=== PATIENT | female | born 1990 | race American Indian/Alaskan Native ===

== ENCOUNTER 2019-03-17 00:10 | Emergency (ER) | payer SELFPAY ==
[2019-03-17 00:23] VITALS: BP 124/79
[2019-03-17 01:32] LABS: Bacteria,Urine 1+ /HPF (Negative); Bilirubin,Urine NEG (Negative); Blood,Urine MOD (Negative); Color,Urine Yellow (Yellow); Mucus,Urine 3+ /HPF; Protein,Urine <15 mg/dL mg/dL (Negative)
--- NOTE | 2019-03-17 01:54 | Emergency Department Report ---
ED Female HPI - General Chief complaint: Urogenital-Female Stated complaint: ABD PAIN Time Seen by Provider: 03/17/19 01:51 Source: patient, RN notes reviewed Mode of arrival: Ambulatory Limitations: No Limitations - History of Present Illness Initial comments: During the entire history and physical examination, I am chaperoned by front end loader driver Yevgeniy Meza Patient is a 28-year-old female who does not believe that she is , with a distant history of gonorrhea. She does not have any recent sexual partners that she reports. Presents to the ER with a complaint of vaginal discharge, vaginal itching. The patient denies headache, neck pain, chest pain, abdominal pain or shortness of breath. She denies dysuria. She denies abdominal pain. She denies additional complaints. Vaginal discomfort has been present for a few days. She typically follows with the [facility]. MD Complaint: other -: Gradual, days(s) Quality: other (itching) Improves with: none Worsens with: none Are you Now?: No - Related Data Sexually active: Yes Allergies Allergy/AdvReac Type Severity Reaction Status Date / Time No Known Allergies Allergy Unverified 03/17/19 00:23 ED Review of Systems ROS: Stated complaint: ABD PAIN Other details as noted in HPI Constitutional: denies: fever Eyes: denies: eye discharge ENT: denies: congestion Respiratory: denies: wheezing Cardiovascular: denies: chest pain Gastrointestinal: denies: abdominal pain, nausea, vomiting, diarrhea, constipation, hematochezia Genitourinary: discharge. denies: urgency, dysuria Musculoskeletal: denies: myalgia Skin: denies: lesions Neurological: denies: weakness Hematological/Lymphatic: denies: easy bleeding ED Past Medical Hx - Past Medical History Previous Medical History?: No - Surgical History Past Surgical History?: No - Social History Smoking Status: Current Every Day Smoker Substance Use Type: Alcohol, Marijuana ED Physical Exam - General Limitations: No Limitations General appearance: alert, in no apparent distress - Head Head exam: Present: atraumatic, normocephalic - Eye Eye exam: Present: normal appearance, EOMI. Absent: conjunctival injection, nystagmus - ENT ENT exam: Present: normal exam, normal orophraynx, mucous membranes moist, normal external ear exam - Neck Neck exam: Present: normal inspection, full ROM. Absent: tenderness, meningismus - Respiratory Respiratory exam: Present: normal lung sounds bilaterally. Absent: respiratory distress - Cardiovascular Cardiovascular Exam: Present: regular rate, normal rhythm, normal heart sounds. Absent: bradycardia, tachycardia, irregular rhythm, systolic murmur, diastolic murmur, rubs, gallop - GI/Abdominal GI/Abdominal exam: Present: soft. Absent: distended, tenderness, guarding, rebound, rigid, pulsatile mass - External exam: Present: normal external exam, bleeding Speculum exam: Present: normal speculum exam, vaginal bleeding, other (chaperoned byAndreina Meza). Absent: erythema, vaginal discharge, cervical discharge Bi-manual exam: Present: normal bi-manual exam. Absent: cervical motion tendernes, adnexal tenderness, adnexal mass, uterine enlargement, uterine tenderness - Extremities Exam Extremities exam: Present: normal inspection, full ROM, other (2+ pulses noted in the bilateral upper and lower extremities. There is no long bony tenderness. The pelvis is stable. The muscular compartments are soft. There is no palpable cord.). Absent: calf tenderness - Back Exam Back exam: Present: normal inspection. Absent: tenderness, CVA tenderness (R), CVA tenderness (L), paraspinal tenderness, vertebral tenderness - Neurological Exam Neurological exam: Present: alert, normal gait, other (The extraocular movements are intact bilaterally. There is no facial droop. The tongue is midline. Phonating in normal sentences. Hearing is intact grossly. Walking with a steady gait. 5/5 strength with 4 extremities. Sensation intact to light touch in 4 extremities. Appropriate thought content. GCS 15.). Absent: motor sensory deficit - Psychiatric Psychiatric exam: Present: normal affect, normal mood, anxious - Skin Skin exam: Present: warm, dry, intact, normal color. Absent: rash ED Course Vital Signs 03/17/19 00:21 Temperature 98.1 F Pulse Rate 63 Respiratory 16 Rate Blood Pressure 124/79 [Right] O2 Sat by Pulse 100 Oximetry - Reevaluation(s) Reevaluation #1: 03/17/19 02:22 Differential diagnosis, including not limited to: Vaginitis, general medical evaluation Assessment and plan: 28-year-old female, with no abdominal tenderness, rebound or guarding, who is not , with a fairly unremarkable urinalysis, with the complaint of vaginitis. She is afebrile with reassuring vital signs. Her gynecologic examination is benign and unremarkable for emergent condition such pathology. Wet prep, gonorrhea/complete cultures are sent. She will need to follow up with an outpatient primary care doctor, editing internship, or health department. The patient's does not appear to have an emergent medical condition at this time. ED Medical Decision Making - Lab Data Vital Signs 03/17/19 00:21 Temperature 98.1 F Pulse Rate 63 Respiratory 16 Rate Blood Pressure 124/79 [Right] O2 Sat by Pulse 100 Oximetry Lab Results 03/17/19 03/17/19 Range/Units Unknown Unknown Urine Color Yellow (Yellow) Urine Turbidity Clear (Clear) Urine pH 5.0 (5.0-7.0) Ur Specific [place] 1.030 (1.003-1.030) Urine Protein <15 mg/dl (Negative) mg/dL Urine Glucose (UA) Neg (Negative) mg/dL Urine Ketones Neg (Negative) mg/dL Urine Blood Mod (Negative) Urine Nitrite Neg (Negative) Urine Bilirubin Neg (Negative) Urine Urobilinogen 2.0 (<2.0) mg/dL Ur Leukocyte Esterase Mod (Negative) Urine WBC (Auto) 5.0 (0.0-6.0) /HPF Urine RBC (Auto) 3.0 (0.0-6.0) /HPF U Epithel Cells (Auto) 4.0 (0-13.0) /HPF Urine Bacteria (Auto) 1+ (Negative) /HPF Urine Mucus 3+ /HPF Urine HCG, Qual Negative (Negative) Critical care attestation.: If time is entered above; I have spent that time in minutes in the direct care of this critically ill patient, excluding procedure time. ED Disposition Clinical Impression: Vaginitis Qualifiers: Chronicity: acute Qualified Code(s): N76.0 - Acute vaginitis Disposition: -01 TO HOME OR SELFCARE Is pt being admited?: No Does the pt Need Aspirin: No Condition: Stable Additional Instructions: Cultures were sent today, and results will be available in the next 3-5 days. Please have your primary care doctor or editing internship contact the medical records department to obtain culture results. If participating in sexual intimacy, recommend barrier protection at all times. Recommend follow-up with health Department, primary care or editing internship within the next 2 weeks. Return to emergency room right away with projectile vomiting, change in mental status, confusion, inability to tolerate liquid feeds, new, worsening or different symptoms not present on initial emergency room evaluation. Referrals: [facility] [Provider Group] - 3-5 Days [facility] [Provider Group] - 3-5 Days [facility] [Provider Group] - 3-5 Days [facility] [Provider Group] - 3-5 Days [facility] [Outside] - 3-5 Days
[2019-03-17 02:18] LABS: HCG Qualitative,Urine Negative (Negative)
== END 2019-03-17 02:48 | disposition home or self-care (01) ==
LOC: ED 00:10
DX: N76.0 Acute vaginitis (principal); F17.200 Nicotine dependence, unspecified, uncomplicated; F12.10 Cannabis abuse, uncomplicated
CPT/HCPCS: 81001; 81025; 87210; 87591; 99284